=== PATIENT | male | born 1980 | race African-American/Black ===

== ENCOUNTER 2019-10-16 02:36 | Emergency (ER) | payer OTHER ==
[~2019-10-16] VITALS: Ht 175.3 cm; Wt 83.0 kg
[2019-10-16] MEDS ORDERED: LISI2.5T PO (03:01)
--- NOTE | 2019-10-16 03:11 | PHYS DOC ---
Past History Past Medical History: Hypertension Past Surgical History: No Surgical History Alcohol Use: None Adult General Chief Complaint Chief Complaint: DENTAL PROBLEM HPI HPI Patient is a 39-year-old male who presents for dental pain. Onset was 4 days ago without any known inciting event or trauma. Patient has been taking Excedrin without significant relief, palpation, chewing, and sleeping on pillows make worse. Pain described as sharp, focal to left upper jar region without radiation and over the past 24 hours has been 10/10 in severity. Timing of symptoms has been constant and worsening since onset. Patient reports distant history of hypertension requiring medical intervention and overall good dental hygiene; however, patient reports going to senior living and was recently released. He has not had any medical intervention since going to senior living. He does not have a PCP established in local area nor a new dentist after recently being released. Patient otherwise does not have any fever, headache, chest pain, shortness of breath, andrew pain, COVID-19 patient exposure or other constitutional symptoms concerning for potential systemic disease Review of Systems Review of Systems Fourteen body systems of review of systems have been reviewed. See HPI for pertinent positives and negative responses, other johnson all other systems are negative, non-pertinent or non-contributory Allergies Allergies Allergies Coded Allergies Type Severity Reaction Last Updated Verified No Known Drug Allergies 10/16/19 No Physical Exam Physical Exam Constitutional: Well developed, well nourished, no acute distress, non-toxic appearance. HENT: Normocephalic, atraumatic, bilateral external ears normal, oropharynx moist, no oral exudates, no palpable fluctuant masses. Dental caries at tooth position #14 without any obvious signs of acute infection or abscess. External nose normal. Eyes: PERRLA, EOMI, conjunctiva normal, no discharge. Neck: Normal range of motion, no tenderness, supple, no stridor. Cardiovascular: Heart rate regular, sinus rhythm, no murmurs rubs or gallops Lungs & Thorax: Bilateral breath sounds clear to auscultation Abdomen: Bowel sounds normal, soft, no tenderness, no masses, no pulsatile masses. Nonsurgical abdomen, no peritoneal signs Skin: Warm, dry, no erythema, no rash. Back: No tenderness, no CVA tenderness. Extremities: No tenderness, no cyanosis, no clubbing, ROM intact, no edema. Neurologic: Alert and oriented X 3, grossly normal motor & sensory function, no focal deficits noted. Psychologic: Affect normal, judgement normal, mood normal. Current Patient Data Vital Signs Vital Signs Date Time Temp Pulse Resp B/P (MAP) Pulse Ox O2 Delivery O2 Flow Rate FiO2 10/16/19 02:36 97.5 68 18 189/115 (139) 98 Room Air EKG EKG [] Radiology/Procedures Radiology/Procedures [] Course & Med Decision Making Course & Med Decision Making Ambulatory well-appearing patient presented to ER and seen on immediate arrival by myself Airway patent, breathing unlabored, vital signs obtained and remarkable for marked hypertension otherwise stable Comprehensive history and physical exam obtained, concerning for dental caries without any other signs or symptoms requiring antibiotic use or further ER intervention Discussed importance of establishing with local dentist in upcoming 1 to 5 days for definitive management and for routine outpatient care. Patient given a list of local dentists to contact Also discussed patient's hypertension today. Patient has history of being treated medically but reportedly was told he did not require any medications. His BP is elevated, likely due to pain, but cannot exclude the fact that he may need medical intervention Discussed with patient need to take blood pressure log for presentation to PCP when however he establishes care with 1 in the next 1 to 7 days X1 Potter 5 administered in ED for acute pain control with near complete resolution of patient's symptomology, again, I discussed no role for antibiotics at this time Strict return precautions were discussed with good understanding by patient, all questions and concerns addressed prior to ER departure Ultimately, patient discharged in stable condition with a friend transporting him home for continued good oral hygiene practices and instructions to establish care with local PCP and dentist in upcoming 1 to 7 days time Gibson Disclaimer Dragon Disclaimer This electronic medical record was generated, in whole or in part, using a voice recognition dictation system. Departure Departure: Impression: Primary Impression: Pain due to dental caries Additional Impression: Elevated blood pressure reading Disposition: HOME/RESIDENCE PRIOR TO ADM Condition: STABLE Referrals: PCP,ANA (PCP) Patient Instructions: Dental Caries Additional Instructions: As mentioned prior to ER departure, please use the attached resources to establish care with local physicians Please see the list of local primary care physician, please call and set up care with 1 of them in the local area to establish care for your outpatient needs. He had a history of being medically treated for high blood pressure, your blood pressure was high during ER visit today. I recommend you get a BP cuff at local [facility] or check this periodically at local stores for free and keep BP log for presentation for your PCP to review and further determine if medical intervention is necessary Also, please see the attached list of local dentists in the area which can assist you further with your dental needs Justification of Admission: Justification of Admission: Justification of Admission Dx: N/A Problem Qualifiers CELSA BELTRÁN DO Oct 16, 2019 03:11
[2019-10-16 03:26] VITALS: BP 184/108
[2019-10-16] MEDS ORDERED: HYDROcodone/APAP 5/325MG 1 TAB TABLET PO ONE (03:30)
== END 2019-10-16 03:30 | disposition home or self-care (01) ==
LOC: ER 02:36
DX: K02.9 Dental caries, unspecified (principal); I10 Essential (primary) hypertension
CPT/HCPCS: 99282; 99283

== ENCOUNTER 2019-10-26 00:38 | Emergency (ER) | payer OTHER ==
[~2019-10-26] VITALS: Ht 175.3 cm; Wt 86.4 kg
[~2019-10-26 00:38] MED LIST: LISI2.5T PO
--- NOTE | 2019-10-26 00:42 | PHYS DOC ---
Past History Past Medical History: Hypertension Past Medical History Dental caries and dental pain Past Surgical History: No Surgical History Smoking: Cigarettes Alcohol Use: None General Adult HPI: HPI: ".. these teeth in back are killing me.. I am waiting on [facility] to approve my dental follow up.. I was here the other night..it is just that the pain got so bad tonight..my gum is swollen all around the teeth..." ( 14,15 and 16) Patient is a 39 year old MALE [facility] inmate who presents with above hx and complaints of dental pain. Pain is localized in teeth 14,15 and 16. Does have pain on percussion of these teeth. Does have findings of gingivitis and inflammation of the gumline around these teeth. No pointing abscess is appreciated. Does have good bite. No trismus. Some mild adenopathy adenopathy at angle jaw. Patient was seen on 10/15 for similar complaint. Has not had a formal repeat referral to dentist from the [facility]. No history of immunosuppression. Patient does smoke tobacco. Review of Systems: Review of Systems: Constitutional: Denies fever or chills Eyes: Denies change in visual acuity HENT: Denies nasal congestion or sore throat . Complains of dental pain Respiratory: Denies cough or shortness of breath Cardiovascular: Denies chest pain or edema GI: Denies abdominal pain, nausea, vomiting, bloody stools or diarrhea : Denies dysuria Musculoskeletal: Denies back pain or joint pain Integument: Denies rash Neurologic: Denies headache, focal weakness or sensory changes Endocrine: Denies polyuria or polydipsia Lymphatic: Denies swollen glands Psychiatric: Denies depression or anxiety Heart Score: Risk Factors: Risk Factors: DM, Current or recent (<one month) smoker, HTN, HLP, family history of CAD, obesity. Risk Scores: Score 0 - 3: 2.5% MACE over next 6 weeks - Discharge Home Score 4 - 6: 20.3% MACE over next 6 weeks - Admit for Clinical Observation Score 7 - 10: 72.7% MACE over next 6 weeks - Early Invasive Strategies Family History: Family History: Noncontributory to presentation Current Medications: Current Meds: See nursing for home meds Allergies: Allergies: Allergies Coded Allergies Type Severity Reaction Last Updated Verified No Known Drug Allergies 10/16/19 No Physical Exam: PE: Constitutional: Well developed, well nourished, moderate acute distress, non- toxic appearance. [] HENT: Normocephalic, atraumatic, bilateral external ears normal, oropharynx moist, no oral exudates, nose normal. Dental caries and dental pain in teeth 14, 15 and 16. Does have surrounding gum inflammation and swelling. Eyes: PERRLA, EOMI, conjunctiva normal, no discharge. [] Neck: Normal range of motion, no tenderness, supple, no stridor. [] Cardiovascular:Heart rate regular rhythm, no murmur [] Lungs & Thorax: Bilateral breath sounds equal apex with scattered wheezes auscultation [] Abdomen: Bowel sounds normal, soft, no tenderness, no masses, no pulsatile masses. [] Skin: Warm, dry, no erythema, no rash. Multiple tattoos. Back: No tenderness, no CVA tenderness. [] Extremities: No tenderness, no cyanosis, no clubbing, ROM intact, no edema. [] Neurologic: Alert and oriented X 3, normal motor function, normal sensory function, no focal deficits noted. [] Psychologic: Affect anxious, judgement normal, mood normal. [] EKG: EKG: [] Radiology/Procedures: Radiology/Procedures: [] Course & Med Decision Making: Course & Med Decision Making Pertinent Labs and Imaging studies reviewed. (See chart for details) Must see a dentist. Rinse mouth with hydrogen peroxide 4 times a day. Aubrey teeth immediately after eating. Rinse mouth immediately after eating with radha xide. Take Keflex 500 mg 3 times a day. Take Tylenol and ibuprofen for pain. Must see a dentist. Return if any concerns. Follow-up primary care to discuss your elevated blood pressure. Avoid smoking. Patient informed we only received limited improvement because he needs to see a dentist for correction of the underlying problem. Must follow-up. Discussed elevated blood pressure with primary care a must. Stop smokng.. Impression: 1. Dental Pain - 14,15, 16 2. HTN 3. Tobacco Use[] Adrianaon Disclaimer: Gibson Disclaimer: This electronic medical record was generated, in whole or in part, using a voice recognition dictation system. Departure Departure: Disposition: 01 HOME/RESIDENCE PRIOR TO ADM Condition: STABLE Referrals: PCP,NO (PCP) Scripts Cephalexin (KEFLEX) 500 Mg Capsule 500 MG PO TID for Ginivitgis, dental infection, #30 BOTTLE Prov: DIANA VARGAS MD 10/26/19 Justification of Admission: Justification of Admission: Justification of Admission Dx: N/A Gibson Disclaimer This chart was dictated in whole or in part using Voice Recognition software in a busy, high-work load, and often noisy Emergency Department environment. It may contain unintended and wholly unrecognized errors or omissions. DIANA VARGAS MD Oct 26, 2019 00:42
[2019-10-26] MEDS ORDERED: CEPH-264 PO (01:59)
[2019-10-26] MEDS ORDERED: KETOROLAC 60 MG/2 ML VIAL. IM ONE (02:15)
[2019-10-26] MEDS ORDERED: cefTRIAXone IM 1 GM VIAL IM ONE (02:15)
[2019-10-26 02:41] VITALS: BP 161/101
== END 2019-10-26 02:54 | disposition home or self-care (01) ==
LOC: ER 00:38
DX: K02.9 Dental caries, unspecified (principal); I10 Essential (primary) hypertension; F17.210 Nicotine dependence, cigarettes, uncomplicated
CPT/HCPCS: 96372; 99284; J0696; J1885